=== PATIENT | female | born 1990 ===

== ENCOUNTER 2021-05-17 12:34 | Outpatient (CLI) | payer OTHER | END 2021-05-17 12:38 | disposition home or self-care (01) | LOC: RAD 12:34 | DX: M54.9 Dorsalgia, unspecified (principal) ==

== ENCOUNTER 2021-12-03 10:56 | Outpatient (CLI) | payer OTHER | END 2021-12-03 11:01 | disposition home or self-care (01) | LOC: SONOGRAMA 10:56 | DX: E28.2 Polycystic ovarian syndrome (principal) ==